=== PATIENT | female | born 2000 | race Caucasian/White ===

== ENCOUNTER 2020-03-29 22:05 | Emergency (ER) | payer BC ==
[~2020-03-29] VITALS: Ht 157.5 cm; Wt 45.5 kg
[2020-03-29 22:32] VITALS: TEMP 98.8
[2020-03-30 00:30] VITALS: BP 125/83; PULSE 69
== END 2020-03-30 00:30 | disposition home or self-care (01) ==
LOC: COL.ER 22:05
DX: S09.90XA Unspecified injury of head, initial encounter (principal); R40.2410 Glasgow coma scale score 13-15, unspecified time; W22.8XXA Striking against or struck by other objects, initial encounter